=== PATIENT | male | born 1940 | race Caucasian/White ===

== ENCOUNTER 2017-09-15 15:27 | Day surgery (SDC) | payer MEDICARE ==
[2017-09-15] MEDS ORDERED: Cyclopentolate 1% Opth Drop 2 ML BOT ONE (15:34)
[2017-09-15] MEDS ORDERED: Phenylephrine 2.5% Ophth Soln 5 ML BOT ONE (15:34)
[2017-09-15] MEDS ORDERED: Fluorouracil 100 MG, Enoxaparin Sodium 25 MG, EPINEPHrine 0.3 MG in Ophthalmic Irrigati... FS SCH (15:54)
[2017-09-15] MEDS ORDERED: PROPOFOL 200 MG/20 ML VIAL ONE (16:29)
[2017-09-15] MEDS ORDERED: Midazolam HCl 2 mg/2 ml Vial ONE ×2 (17:08→17:10)
[2017-09-15] MEDS ORDERED: PROPOFOL 20 ML ONE (17:10)
[2017-09-15] MEDS ORDERED: Fentanyl 100 MCG/2 ML VIAL ONE ×2 (17:10→17:12)
--- NOTE | 2017-09-15 22:02 | OP ---
DATE OF PROCEDURE: 09/15/2017 PREOPERATIVE DIAGNOSIS: Rhegmatogenous retinal detachment, left eye. POSTOPERATIVE DIAGNOSIS: Rhegmatogenous retinal detachment, left eye. PROCEDURE: Pars plana vitrectomy and retinal detachment repair, left eye. SURGEON: Rachid Beltre M.D. ANESTHESIA: Local with monitored anesthesia care. PROCEDURE IN DETAIL: The patient identified in the preoperative holding area. Appropriate informed consent for the planned surgical procedure on the left eye been obtained. The patient was transporte d to the OR suite. Appropriate cardiopulmonary monitoring was established. Local anesthesia was obt ained via Van Lint lid block using 50:50 mixture of 4% lidocaine, and 0.75% bupivacaine. The patient was prepped and draped in the usual sterile manner for ophthalmic surgery on the left eye. Lid spec ulum was placed in the left eye. The 25-gauge trocars placed in conjunctiva and sclera supratemporal ly, inferotemporally, supranasally. Infusion line was placed inferotemporally. Light pipe and vitre ous cutter inserted into the eye. Core vitrectomy was performed. Vitreous was trimmed back 360 degr ees using wide field viewing system. Previously existing tear was noted at the 2 o'clock position. A drain was placed along the inferotemporal arcades. Complete air fluid exchange was performed with 10 minutes being allowed for fluid to drain posteriorly. A 360 laser was placed using endolaser deli very device. A 28% sulfur hexafluoride gas infused into the eye. Trocars were removed. Eye was not ed to retain pressure well. Retrobulbar Kenalog and subconjunctival Ancef were placed. Atropine and antibiotic ointment were placed, and the eye was patched and shielded. Patient taken to the postope rative recovery unit in good condition having suffered no immediate perioperative complications. DISCHARGE INSTRUCTIONS: The patient was instructed to keep patch and shield on, avoid lifting or riky ding, and follow up in the morning with Dr. Beltre.
== END 2017-09-15 19:10 | disposition home or self-care (01) ==
LOC: SDC 15:27
PROVIDERS: ATTEND Ophthalmology Retina Specialist
PROC: 08953ZZ Drainage of Left Vitreous, Percutaneous Approach (ICD-10-PCS; principal; 2017-09-15)
DX: H33.012 Retinal detachment with single break, left eye; I10 Essential (primary) hypertension; E11.9 Type 2 diabetes mellitus without complications; E78.5 Hyperlipidemia, unspecified
CPT/HCPCS: 36416; 67025; J0171; J1650; J2250; J2704; J3010; J9190

== ENCOUNTER 2017-10-03 15:45 | Day surgery (SDC) | payer MEDICARE ==
[2017-10-03] MEDS ORDERED: PROPOFOL 200 MG/20 ML VIAL ONE (15:56)
[2017-10-03] MEDS ORDERED: Lidocaine 1% PF 5 ML VIAL ONE (15:56)
[2017-10-03] MEDS ORDERED: Cyclopentolate 1% Opth Drop 2 ML BOT ONE (16:07)
[2017-10-03] MEDS ORDERED: Phenylephrine 2.5% Ophth Soln 5 ML BOT ONE (16:07)
[2017-10-03] MEDS ORDERED: Fluorouracil 100 MG, Enoxaparin Sodium 25 MG, EPINEPHrine 0.3 MG in Ophthalmic Irrigati... IVPB SCH (16:45)
[2017-10-03] MEDS ORDERED: Fentanyl 100 MCG/2 ML VIAL ONE (17:44)
[2017-10-03] MEDS ORDERED: Midazolam HCl 2 mg/2 ml Vial ONE (17:44)
--- NOTE | 2017-10-04 00:23 | OP ---
DATE OF PROCEDURE: 10/03/2017 PREOPERATIVE DIAGNOSIS: Rhegmatogenous retinal detachment, left eye. POSTOPERATIVE DIAGNOSIS: Rhegmatogenous retinal detachment, left eye. PROCEDURE: Complex retinal detachment repair, left eye. SURGEON: Rachid Beltre MD ANESTHESIA: Local monitored anesthesia care. COMPLICATIONS: None. PROCEDURE IN DETAIL: The patient was identified in the preoperative holding area. Appropriate conse nt for planned surgical procedure on the left eye have been obtained. The patient was transported to the operative suite. Appropriate cardiopulmonary monitoring was established. Local anesthesia was obtained using retrobulbar modified Van Lint lid block using 50:50 mixture of 4% lidocaine, 0.75% bup ivacaine. The patient was prepped and draped in usual sterile manner for ophthalmic surgery on left eye. Lid speculum was placed in the left eye. 25-gauge trocars were placed in conjunctiva and scler a supratemporally, inferotemporally, and supranasally. Infusion line was placed inferotemporally. L ight pipe and vitreous cutter were inserted into the eye. Core vitrectomy was performed. Posterior drain retinotomy was present inferotemporally. Complete air-fluid exchange was performed with 10 min utes being allowed for fluid to drain posteriorly. Fluid was drained from underneath the retina. 36 0 laser was placed using endolaser delivery device. Silicone oil was infused into the eye through it s superior nasal sclerotomy. Sclerotomies were suture closed with 7-0 Vicryl suture. Conjunctiva wa s closed with 6-0 plain gut suture. Retrobulbar Kenalog and subconjunctival Ancef were placed. Atro pine and antibiotic ointment were placed. Eye was patched and shielded. The patient was taken to po stoperative recovery unit in good condition and suffered no immediate perioperative complications. DISCHARGE INSTRUCTIONS: The patient has been instructed to keep patch and shield on, avoid lifting o r bending, and follow up in the morning with Dr. Beltre.
== END 2017-10-03 20:33 | disposition home or self-care (01) ==
LOC: SDC 15:45
PROVIDERS: ATTEND Ophthalmology Retina Specialist
PROC: 08T53ZZ Resection of Left Vitreous, Percutaneous Approach (ICD-10-PCS; principal; 2017-10-03)
DX: H33.022 Retinal detachment with multiple breaks, left eye (principal)
CPT/HCPCS: 67113; 82962; C1814; 36416; J0171; J1650; J2001; J2250; J2704; J3010; J9190

== ENCOUNTER 2018-07-16 05:53 | Day surgery (SDC) | payer MEDICARE ==
[2018-07-15 12:33] VITALS: BMI 37.4
[2018-07-16] MEDS ORDERED: Midazolam HCl 2 mg/2 ml Vial ONE (06:47)
[2018-07-16] MEDS ORDERED: PROPOFOL 20 ML ONE (06:47)
[2018-07-16] MEDS ORDERED: Fentanyl 100 MCG/2 ML VIAL ONE (06:47)
[2018-07-16] MEDS ORDERED: Cyclopentolate 1% Opth Drop 2 ML BOT ONE (06:49)
[2018-07-16] MEDS ORDERED: Phenylephrine 2.5% Ophth Soln 5 ML BOT ONE (06:49)
[2018-07-16] MEDS ORDERED: Fluorouracil 100 MG, Enoxaparin Sodium 25 MG, EPINEPHrine 0.3 MG in Ophthalmic Irrigati... IVPB SCH (07:45)
--- NOTE | 2018-07-16 11:05 | OP ---
DATE OF PROCEDURE: 07/16/2018 PREOPERATIVE DIAGNOSIS: Vitreous opacification, epiretinal membrane, left eye. POSTOPERATIVE DIAGNOSIS: Vitreous opacification, epiretinal membrane, left eye. PROCEDURE PERFORMED: Pars plana vitrectomy, membrane peel, left eye. ANESTHESIA: Local with monitored anesthesia care. PROCEDURE IN DETAIL: The patient was identified in the preoperative holding area. Appropriate informed consent for the planned surgical procedure on the left eye had been obtained. The patient was transported to the operative suite, where appropriate cardiopulmonary monitoring was established. Local anesthesia was obtained using retrobulbar modified Van Lint lid block using 50:50 mixture of 4% lidocaine and 0.75% bupivacaine. The patient was prepped and draped in the usual sterile manner for ophthalmic surgery on the left eye. Lid speculum was placed in the left eye. A 25-gauge trocar was placed through the conjunctiva. Conjunctiva was clear supratemporally, inferotemporally, and supranasally. Infusion line was placed inferotemporally. Light pipe vitreous cutter was inserted into the eye. Core vitrectomy was performed. Silicone oil was removed from the eye using viscous fluid removal device. Membrane pick was used to elevate the membranes on the retinal surface. They were peeled in large sheaths across the posterior pole. Some subretinal fluid was noted through the previous existing posterior drain temporally. Complete air-fluid exchange was performed with 10 minutes being left for fluid to drain posteriorly. Prophylactic laser was placed inferiorly and over the drain site. A 28% sulfur hexafluoride gas was infused into the eye. Trocars were removed. Superotemporal and supranasal sclerotomy suture closed. Retrobulbar Kenalog and subconjunctival Ancef were placed. Antibiotic ointment was placed and the eye was patched and shielded. The patient was taken to postoperative recovery unit in good condition, having suffered no immediate perioperative complications. The patient was advised to position right side down and followup in the morning with Dr. Beltre. Job ID: [id number]
[2018-07-16] MEDS ORDERED: Maxitrol 0.1% Opth Oint 3.5 GM TUBE ONE (12:17)
[2018-07-16] MEDS ORDERED: CEFAZOLIN 1 GM VIAL ONE (12:17)
[2018-07-16] MEDS ORDERED: PROPOFOL 200 MG/20 ML VIAL ONE (12:17)
[2018-07-16] MEDS ORDERED: Triamcinolone 40 MG/ML VIAL ONE (12:17)
[2018-07-16] MEDS ORDERED: Lidocaine 4% PF 5 ML AMP ONE (12:17)
[2018-07-16] MEDS ORDERED: Bupivacaine 0.75% 10 ML AMP ONE (12:17)
[2018-07-16] MEDS ORDERED: Lidocaine 1% PF 5 ML VIAL ONE (12:17)
== END 2018-07-16 10:32 | disposition home or self-care (01) ==
LOC: SDC 05:53
PROVIDERS: ATTEND Ophthalmology Retina Specialist
PROC: 08T53ZZ Resection of Left Vitreous, Percutaneous Approach (ICD-10-PCS; principal; 2018-07-16)
PROC: 08NF3ZZ Release Left Retina, Percutaneous Approach (ICD-10-PCS; 2018-07-16)
DX: H43.312 Vitreous membranes and strands, left eye (principal); Z79.4 Long term (current) use of insulin; Z79.82 Long term (current) use of aspirin; Z79.01 Long term (current) use of anticoagulants; Z79.899 Other long term (current) drug therapy
CPT/HCPCS: 36416; 67025; J0171; J0690; J1650; J2001; J2250; J2704; J3010; J3301; J3490; J9190